=== PATIENT | female | born 1950 | race American Indian/Alaskan Native ===

== ENCOUNTER 2016-10-28 11:26 | Emergency (ER) | payer OTHER ==
[~2016-10-28] VITALS: Ht 147.3 cm; Wt 104.3 kg
[2016-10-28 11:30] VITALS: BP_SYST 145
[2016-10-28 12:20] LABS: MEAN CORPUSCULAR HEMOGLOBIN 29 pg (27-31); MEAN CORPUSCULAR HGB CONC 33 % (32-36); MEAN CORPUSCULAR VOLUME 88 fL (79.0-98.0); PLATELET COUNT (AUTO) 292 K/uL (130-430); RED BLOOD CELL COUNT(AUTO) 4.45 MIL/uL (4.2-6.2); RED CELL DISTRIBUTION WIDTH 14.6 % (9.0-15.0); WHITE BLOOD COUNT (AUTO) 13.2 K/uL (4.8-10.8)
[2016-10-28 12:25] LABS: CALCIUM 8.7 mg/dL (8.4-11.0); CREATININE 0.94 mg/dL (0.55-1.30); POTASSIUM 4.2 mmol/L (3.5-5.1)
[2016-10-28 12:30] LABS: ALBUMIN 3.6 g/dL (3.4-4.8)
[2016-10-28 12:38] LABS: BASOPHILS % (MANUAL) 0 % (0-2); EOSINOPHILS % (MANUAL) 1 % (0-7); LYMPHOCYTES % (MANUAL) 30 % (20-46); MONOCYTES % (MANUAL) 4 % (0-11)
[2016-10-28] MEDS ORDERED: IPRATROPIUM BROM 0.5 MG/2.5 ML VIAL.NEB (ATROVENT) IH ONE (15:30)
[2016-10-28] MEDS ORDERED: ALBUTEROL SULFATE 0.083% 2.5 MG/3 ML VIAL.NEB IH ONE (15:30)
[2016-10-28] MEDS ORDERED: PREDNISONE 20 MG TABLET PO ONE (16:30)
[2016-10-28 19:18] VITALS: BP_SYST 146
== END 2016-10-28 19:18 | disposition short-term general hospital (02) ==
LOC: SED 11:26
DX: R06.02 Shortness of breath (principal)
CPT/HCPCS: 36415; 71010; 80053; 85007; 85027; 94640; 99285; J7512